=== PATIENT | female | born 1995 | race American Indian/Alaskan Native ===

== ENCOUNTER 2018-03-15 14:38 | Emergency (ER) | payer SELFPAY ==
[2018-03-15 15:09] LABS: Bacteria,Urine 2+ /HPF (Negative); Bilirubin,Urine NEG (Negative); Blood,Urine NEG (Negative); Color,Urine Yellow (Yellow); Mucus,Urine FEW /HPF; Protein,Urine <15 mg/dL mg/dL (Negative); Urobilinogen,Urine < 2.0 mg/dL (<2.0)
[2018-03-15 17:36] LABS: Hematocrit 32.5 % (30.3-42.9); Hemoglobin 11.1 gm/dl (10.1-14.3); Mean Corpuscular HGB Conc 34 % (30-34); Mean Corpuscular Hemoglobin 30 pg (28-32); Mean Corpuscular Volume 87 fl (79-97); Platelet Count 190 K/mm3 (140-440); Red Blood Count 3.74 M/mm3 (3.65-5.03); Red Cell Distribution Width 13.1 % (13.2-15.2)
--- NOTE | 2018-03-15 17:42 | Emergency Department Report ---
ED Female HPI - General Chief complaint: Abdominal Pain Stated complaint: 5MOS PREG./ABD PAIN Time Seen by Provider: 03/15/18 17:07 Source: patient Mode of arrival: Ambulatory Limitations: No Limitations - History of Present Illness Initial comments: 22-year-old is 2 para 1 and comes in stating she is 5 months with no care and reports she has lower abdominal pain that is sharp. And lower back pain that is sharp for 2 days. Patient denies any vaginal bleeding but does admit to vaginal discharge. Patient currently has no known drug allergies she just started taking vitamins yesterday. MD Complaint: vaginal discharge -: days(s) (2) Location: suprapubic Quality: sharp Consistency: intermittent Improves with: none Worsens with: none Are you Now?: Yes Associated Symptoms: vaginal discharge - Related Data Sexually active: Yes : 2 Para: 1 Home Medications Medication Instructions Recorded Confirmed Last Taken Pnv with Ca,No.72/Iron/FA 1 tab PO DAILY 11/18/14 11/18/14 11/15/14 14:00 [ Plus Tablet] 1 tab Previous Rx's Medication Instructions Recorded Last Taken Type Ciprofloxacin HCl [Cipro] 500 mg PO Q12H #14 tab 11/20/13 Unknown Rx Ranitidine HCl [Ranitidine] 150 mg PO Q12H #30 tablet 11/20/13 Unknown Rx traMADol [Ultram 50 MG tab] 50 mg PO Q6HR PRN #16 tablet 11/20/13 Unknown Rx Promethazine [Phenergan] 25 mg PO Q6H PRN #20 tablet 05/13/14 Unknown Rx Docusate Sodium [Colace CAP] 100 mg PO BID #30 capsule 11/21/14 Unknown Rx Ferrous Fumarate [Hemocyte] 324 mg PO BID #60 tablet 11/21/14 Unknown Rx Ibuprofen [Motrin 600 MG tab] 600 mg PO Q6H PRN #30 tablet 11/21/14 Unknown Rx Labetalol [Normodyne TAB] 200 mg PO BID #30 tablet 11/21/14 Unknown Rx Pnv No.95/Ferrous Fum/Folic AC 1 each PO QDAY #90 tablet 03/15/18 Unknown Rx [ Formula Tablet] Allergies Allergy/AdvReac Type Severity Reaction Status Date / Time No Known Allergies Allergy Verified 06/18/14 12:19 ED Review of Systems ROS: Stated complaint: 5MOS PREG./ABD PAIN Other details as noted in HPI Constitutional: denies: chills, fever Eyes: denies: eye pain, eye discharge, vision change ENT: denies: ear pain, throat pain Respiratory: denies: cough, shortness of breath, wheezing Cardiovascular: denies: chest pain, palpitations Endocrine: no symptoms reported Gastrointestinal: abdominal pain. denies: nausea, diarrhea Genitourinary: denies: urgency, dysuria, discharge Musculoskeletal: back pain Skin: denies: rash, lesions ED Past Medical Hx - Past Medical History Hx Hypertension: No Hx Heart Attack/AMI: No Hx Congestive Heart Failure: No Hx Diabetes: No Hx Deep Vein Thrombosis: No Hx Liver Disease: No Hx Renal Disease: No Hx Sickle Cell Disease: Yes (trait) Hx Seizures: No Hx Asthma: No Hx COPD: No Hx HIV: No Additional medical history: ANEMIA HISTORY OF BLOOD TRANSFUSIONS - Surgical History Past Surgical History?: No - Social History Smoking Status: Never Smoker Substance Use Type: None - Medications Home Medications: Home Medications Medication Instructions Recorded Confirmed Last Taken Type Ciprofloxacin HCl [Cipro] 500 mg PO Q12H #14 tab 11/20/13 11/18/14 Unknown Rx Ranitidine HCl [Ranitidine] 150 mg PO Q12H #30 tablet 11/20/13 11/18/14 Unknown Rx traMADol [Ultram 50 MG tab] 50 mg PO Q6HR PRN #16 tablet 11/20/13 11/18/14 Unknown Rx Promethazine [Phenergan] 25 mg PO Q6H PRN #20 tablet 05/13/14 11/18/14 Unknown Rx Pnv with Ca,No.72/Iron/FA 1 tab PO DAILY 11/18/14 11/18/14 11/15/14 14:00 History [ Plus Tablet] 1 tab Docusate Sodium [Colace CAP] 100 mg PO BID #30 capsule 11/21/14 Unknown Rx Ferrous Fumarate [Hemocyte] 324 mg PO BID #60 tablet 11/21/14 Unknown Rx Ibuprofen [Motrin 600 MG tab] 600 mg PO Q6H PRN #30 tablet 11/21/14 Unknown Rx Labetalol [Normodyne TAB] 200 mg PO BID #30 tablet 11/21/14 Unknown Rx Pnv No.95/Ferrous Fum/Folic AC 1 each PO QDAY #90 tablet 03/15/18 Unknown Rx [ Formula Tablet] ED Physical Exam - General Limitations: No Limitations General appearance: alert, in no apparent distress - Head Head exam: Present: atraumatic, normocephalic - Eye Eye exam: Present: normal appearance - Respiratory Respiratory exam: Present: normal lung sounds bilaterally. Absent: respiratory distress - Cardiovascular Cardiovascular Exam: Present: regular rate, normal rhythm. Absent: systolic murmur, diastolic murmur, rubs, gallop - GI/Abdominal GI/Abdominal exam: Present: soft, normal bowel sounds, other (fundus at the umblicus ) - External exam: Present: normal external exam Speculum exam: Present: normal speculum exam Bi-manual exam: Present: normal bi-manual exam. Absent: cervical motion tendernes, adnexal tenderness, adnexal mass ED Course Vital Signs 03/15/18 03/15/18 14:50 19:33 Temperature 98.9 F 99 F Pulse Rate 82 96 H Respiratory 16 16 Rate Blood Pressure 114/61 Blood Pressure 106/54 [Left] O2 Sat by Pulse 100 100 Oximetry ED Medical Decision Making - Lab Data Result diagrams: 03/15/18 16:07 03/15/18 16:07 - Radiology Data Radiology results: report reviewed Ultrasound pelvic Impression: Single intrauterine viable with an approximated age of 19 weeks and 5 days. - Medical Decision Making Patient's been evaluated by this provider fast track. Ultrasound ordered and completed which shows a single intrauterine viable 19 weeks and 5 days. Patient had a wet prep done which was normal. Chlamydia/GC ordered discussed the patient to have her OB doctor call to get cultures results. Discussed the patient I will refer her to her OB for care. I will write her prescription for vitamins. As well as I instructed patient to take Tylenol for pain do not take Motrin or Aleve. Patient verbalized understanding. Critical care attestation.: If time is entered above; I have spent that time in minutes in the direct care of this critically ill patient, excluding procedure time. ED Disposition Clinical Impression: Abdominal pain Qualifiers: Abdominal location: lower abdomen, unspecified Qualified Code(s): R10.30 - Lower abdominal pain, unspecified Back pain Qualifiers: Back pain location: low back pain Back pain laterality: unspecified Sciatica presence: without sciatica Disposition: - TO HOME OR SELFCARE Is pt being admited?: No Does the pt Need Aspirin: No Condition: Stable Instructions: Abdominal Pain (ED) Additional Instructions: Please take your vitamins daily. It's very important for you to follow up with OB I have listed for below. You can take Tylenol for pain. Do not take any Motrin or Aleve. Prescriptions: Pnv No.95/Ferrous Fum/Folic AC [ Formula Tablet] 1 each PO QDAY #90 tablet Referrals: PRIMARY CARE [Primary Care Provider] - 3-5 Days [facility] [Provider Group] - 3-5 Days [facility] [Provider Group] - 3-5 Days [facility] [Provider Group] - 3-5 Days [facility] [Provider Group] - 3-5 Days Forms: Work/School Release Form(ED)
--- NOTE | 2018-03-15 17:45 | Emergency Department Report ---
Blank Doc - Documentation Documentation: 22yo female comes in with pelvic pain, pt states she has not seen her OBGYN yet. pt denies any vaginal bleeding. Pt denies n/v/cp/sob P: bloodwork, pelvic exam, Ultrasound
[2018-03-15 17:49] LABS: Alanine Aminotransferase 7 units/L (7-56); Albumin 3.6 g/dL (3.9-5); BUN/Creatinine Ratio 17; Blood Urea Nitrogen 5 mg/dL (7-17); Calcium 9.5 mg/dL (8.4-10.2); Hemolysis Index 2
--- NOTE | 2018-03-15 19:02 | Ultrasound Report ---
FINAL REPORT EXAM: US OB > = 14 WEEKS FETUS HISTORY: pelvic pain in TECHNIQUE: Standard obstetrical ultrasound PRIORS: None. FINDINGS: LMP: Unknown US Age (average) = 19 w 5 d EFW (BPD,HC,AC,FL) = 309 g +/- 46 g (0 lbs 11Oz. +/- 2oz.) US EDC 08/04/2018 CI 75.6 HC/AC 1.22 FL/BPD 72 FL/HC 18.9 FL/AC 23.1 BPD 4.5 cm corresponding to estimated age 19 weeks 4 days HC 17.1 cm corresponding to estimated age 19 weeks 5 days AC 14.0 cm corresponding to estimated age 19 weeks 3 days FL 3.2 cm corresponding to estimated age 20 weeks 1 day Presentation: The cephalic Activity: Monitored Placental location: Posterior Placental grade: 0 Cardiac motion: 153 BPM using M-mode doppler Heart (4 CH) : Present Umbilical cord: 3 vessel Bladder: Present Kidneys: Present stomach: Present Diaphragm: Present Spine: Present brain and skull: Present with normal anatomy femurs: Present tibia/fibula: Present humerus: Present radius/ulna: Present Cord Insertion: Present Amniotic Fluid Volume: Adequate Cervical Length: 3.15 cm IMPRESSION: Single intrauterine viable with an approximate age of 19 weeks 5 days.
[2018-03-15 19:34] VITALS: BP 106/54
[2018-03-15 19:42] LABS: Anisocytosis 1+; Basophils % (Manual) 0 % (0.0-1.8); Eosinophils % (Manual) 0 % (0.0-4.3); Platelet Estimate Consistent w Auto; Total Cells Counted 100
== END 2018-03-15 20:25 | disposition home or self-care (01) ==
LOC: ED 14:38
DX: O26.892 Other specified pregnancy related conditions, second trimester (principal); R10.30 Lower abdominal pain, unspecified; M54.5 Low back pain; D64.9 Anemia, unspecified; D57.00 Hb-SS disease with crisis, unspecified; Z3A.19 19 weeks gestation of pregnancy
CPT/HCPCS: 36415; 76805; 80053; 81001; 84702; 85007; 85025; 86850; 86900; 86901; 87210; 87591

== ENCOUNTER 2022-03-08 07:53 | Emergency (ER) | payer OTHER ==
[2022-03-08] MEDS ORDERED: KETOROLAC 30 MG/1 ML INJ IM ONE (12:18)
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
[2022-03-08 13:15] VITALS: BP 122/74
== END 2022-03-08 13:14 | disposition home or self-care (01) ==
LOC: ED 07:53
DX: M54.2 Cervicalgia (principal); M54.9 Dorsalgia, unspecified; V89.2XXA Person injured in unspecified motor-vehicle accident, traffic, initial encounter; Y93.89 Activity, other specified; Y92.89 Other specified places as the place of occurrence of the external cause; Y99.8 Other external cause status
CPT/HCPCS: 96372; 99282; J1885